=== PATIENT | female | born 1985 | race Caucasian/White ===

== ENCOUNTER → 2017-06-01 | Outpatient (CLI) | payer OTHER ==
[~2017-06-01] MED LIST: CEPHALEXIN500 M1 PO; CONCEPT DHA1 CAP PO; MOTRIN 800800 MG/TAB PO; NEWMANS TOP; PERCOCET 325 MG1 TA2 PO; PRENATAL1 TA7 PO; SENOKOT S 50 MG1 TAB PO
[2017-06-01 11:54] LABS: PH 6 (5-8); URINE APPEARANCE Clear; URINE BACTERIA Rare /hpf; URINE BILIRUBIN Negative (NEGATIVE); URINE BLOOD Negative (NEGATIVE); URINE COLOR Yellow; URINE GLUCOSE Negative (NEGATIVE); URINE KETONE 1+ (NEGATIVE); URINE RBC 0-2 /hpf; URINE UROBILINOGEN Negative (NEGATIVE); URINE WBC 0-2 /hpf
== END ==
LOC: ZLAB.KSTAT 11:19
PROVIDERS: Nurse Practitioner Family
DX: R30.0 Dysuria (principal)

== ENCOUNTER 2017-07-21 09:36 | Inpatient (IN) | payer OTHER ==
[2017-07-21] VITALS (29 sets, daily range): BP systolic 86–122; BP diastolic 45–79; PULSE 62–106; TEMP 97.9–98.9
[~2017-07-21] VITALS: Ht 175.3 cm; Wt 102.3 kg
[~2017-07-21 09:36] MED LIST changes: -CONCEPT DHA1 CAP PO; -NEWMANS TOP; -PERCOCET 325 MG1 TA2 PO
[2017-07-21] MEDS ORDERED: CONCEPT DHA1 CAP PO (09:58)
[2017-07-21 11:52] LABS: BASO % 0.4 % (0.0-2.0); EOS # 0.5 (0.0-0.7); EOS % 4.1 % (0-4.0); GRAN # 8.2 (1.4-6.5); GRAN % 73.9 % (42.2-75.2); HEMATOCRIT 35.5 % (37.0-47.0); HEMOGLOBIN 11.7 g/dl (12.5-16.0); LYMPH # 1.7 (1.2-3.4); LYMPH % 14.9 % (20.0-51.0); MEAN CELL VOLUME 81 fl (80.0-100.0); MEAN CORPUSCULAR HEMOGLOBIN 27 pg (27.0-31.0); MEAN CORPUSCULAR HGB CONC 33 g/dl (33.0-37.0); MEAN PLATELET VOLUME 10.2 fl (7.4-10.4); MONO # 0.7 (0.1-0.6); MONO % 5.9 % (1.7-9.3); PLATELET COUNT 201 K/mm3 (130-400); RED BLOOD COUNT 4.37 M/mm3 (4.10-5.30); REDCELL DISTRIBUTION WIDTH-CV 16.1 % (11.5-14.5); WHITE BLOOD COUNT 11.1 K/mm3 (4.8-10.8)
[2017-07-21] MEDS ORDERED: PERCOCET 325 MG1 TA2 PO (16:16)
[2017-07-21] MEDS ORDERED: MOTRIN 800800 MG/TAB PO (16:16)
[2017-07-22 00:17] VITALS: BP 107/66; PULSE 90; TEMP 98.3
[2017-07-22 04:15] VITALS: BP 103/64; PULSE 93; TEMP 97.7
[2017-07-22 07:19] VITALS: BP 103/58; PULSE 92; TEMP 98.1
[2017-07-22] MEDS ORDERED: NEWMANS TOP (08:11)
[2017-07-22 16:30] VITALS: BP 113/70; PULSE 105; TEMP 97.9
[2017-07-22 18:50] VITALS: BP 107/66; PULSE 96; TEMP 98
[2017-07-23 08:59] VITALS: BP 103/72; PULSE 84; TEMP 97.5
== END 2017-07-23 12:20 | disposition home or self-care (01) | DRG 775 ==
LOC: LDRO → LDR 10:06 → LDRO 13:58 → LDR 13:58 → OB 13:58 → LDRO 07-31 16:28
PROVIDERS: Obstetrics & Gynecology
PROC: 10E0XZZ Delivery of Products of Conception, External Approach (ICD-10-PCS; principal; 2017-07-21)
PROC: 0KQM0ZZ Repair Perineum Muscle, Open Approach (ICD-10-PCS; 2017-07-21)
DX: O66.0 Obstructed labor due to shoulder dystocia (principal); O69.81X0 Labor and delivery complicated by cord around neck, without compression, not applicable or unspecified; O70.1 Second degree perineal laceration during delivery; Z3A.38 38 weeks gestation of pregnancy; Z37.0 Single live birth
CPT/HCPCS: J2590; J7120

== ENCOUNTER → 2017-07-25 | Outpatient (CLI) | payer OTHER ==
[~2017-07-25] MED LIST changes: +CONCEPT DHA1 CAP PO; +NEWMANS TOP; +PERCOCET 325 MG1 TA2 PO
== END ==
LOC: OLC 11:58
DX: Z39.1 Encounter for care and examination of lactating mother (principal); Z71.89 Other specified counseling

== ENCOUNTER → 2024-06-22 | Outpatient (CLI) | payer OTHER | LOC: MC.RAD 08:15 | DX: Z12.31 Encounter for screening mammogram for malignant neoplasm of breast (principal) ==